=== PATIENT | female | born 1960 | race African-American/Black ===

== ENCOUNTER 2016-08-07 12:57 | Emergency (ER) | payer OTHER ==
[~2016-08-07] VITALS: Ht 172.7 cm; Wt 86.2 kg
[~2016-08-07 12:57] MED LIST: AMOXICILLI400 MG/5 M ORAL; HYDROCHLOROTH12.5 M2 ORAL; IBUPROFEN600 MG ORAL; OCUFLOX5 ML OP
[2016-08-07 13:53] LABS: APPEARANCE,URINE CLEAR; KETONES,URINE NEGATIVE (NEGATIVE); LEUKOCYTE ESTERASE ,URINE 1+ (NEGATIVE); NITRITE,URINE NEGATIVE (NEGATIVE); PH,URINE 5 (4.5-8.0); PROTEIN,URINE 2+ (NEGATIVE); UROBILINOGEN,URINE 1 MG/DL (0.0-1.0)
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
[2016-08-07] MEDS ORDERED: TYLENOL EXTRA500 MG ORAL (13:57)
[2016-08-07] MEDS ORDERED: ZOFRAN ODT4 MG ORAL (13:57)
[2016-08-07 14:04] VITALS: BP 148/77
[2016-08-07 14:04] LABS: RBC,URINE 0-2 /HPF (0 - 2); SQUAMOUS EPITHELIAL CELL,UR MANY /LPF (NONE/OCC)
[2016-08-07 14:05] LABS: BACTERIA,URINE FEW /HPF; ICTOTEST NEGATIVE
[2016-08-07 14:20] VITALS: BP 148/77
== END 2016-08-07 14:27 | disposition home or self-care (01) ==
LOC: EMR 13:40
DX: K29.70 Gastritis, unspecified, without bleeding (principal); R51 Headache; Z57.5 Occupational exposure to toxic agents in other industries; I10 Essential (primary) hypertension
CPT/HCPCS: 81003; 99284

== ENCOUNTER 2016-09-07 07:14 | Emergency (ER) | payer OTHER ==
[~2016-09-07] VITALS: Ht 172.7 cm; Wt 85.7 kg
[~2016-09-07 07:14] MED LIST changes: +TYLENOL EXTRA500 MG ORAL; +ZOFRAN ODT4 MG ORAL
[2016-09-07 07:40] VITALS: BP 158/87
[2016-09-07] MEDS ORDERED: KEFLEX500 MG ORAL (07:43)
[2016-09-07] MEDS ORDERED: DIPHENHYDRAMINE25 M1 ORAL (07:43)
[2016-09-07] MEDS ORDERED: PREDNISONE20 MG ORAL (07:43)
--- NOTE | 2016-09-07 10:39 | Emergency Room Report ---
History of Present Illness General Chief Complaint: Animal Bite Source: Patient Present Illness HPI 56-year-old female presents ED complaining of itchiness and red bumps to her body. States she noticed them this morning. patient she was bitten by something. Was sleeping in her bed. Patient denies any new sheets or clothing. Denies any new laundry detergents. Patient states there has been insect infestations in her apartment building which have not been addressed by the building management. Denies any known food or drug allergies. Notes itchiness. Denies pain. Denies fevers or chills. No other aggravating relieving factors. Denies any other associated symptoms Allergies: Coded Allergies: No Known Allergies (Unverified , 08/29/13) Patient History Past Medical History: HTN Past Surgical History: none Pertinent Family History: none Social History: Denies: alcohol use, drug use, smoking Last Menstrual Period: Menopause Now: No Immunizations: UTD Reviewed Nursing Documentation: PMH: Agreed, PSxH: Agreed Nursing Documentation-PMH Past Medical History: No History, Except For Hx Hypertension: Yes Review of Systems All Other Systems: negative except mentioned in HPI Physical Exam Vital Signs Date Time Temp Pulse Resp B/P Pulse Ox O2 Delivery O2 Flow Rate FiO2 09/07/16 07:20 97.9 78 16 167/91 99 Room Air Sp02 EP Interpretation: reviewed, normal General Appearance: no apparent distress, alert, GCS 15, non-toxic Head: normocephalic Eyes: bilateral eye PERRL, bilateral eye normal inspection ENT: hearing grossly normal, normal pharynx, no angioedema, normal voice Neck: full range of motion, supple/symm/no masses Respiratory: chest non-tender, lungs clear, normal breath sounds, speaking full sentences Cardiovascular #1: regular rate, rhythm, no edema Gastrointestinal: normal inspection Rectal: deferred Genitourinary: no CVA tenderness, ext genitalia/vag normal Neurologic: alert, oriented x3, responsive, motor strength/tone normal, sensory intact, speech normal Psychiatric: normal inspection Skin: rash - multiple erythamatous bumps noted to arms, face, legs Lymphatic: normal inspection Medical Decision Making Diagnostic Impression: Primary Impression: Insect bite Qualified Codes: W57.XXXA - Bitten or stung by nonvenomous insect and other nonvenomous arthropods, initial encounter ER Course Hospital Course 56-year-old female presents to ED with red bumps, itchiness Differential diagnoses include: Cellulitis, dermatitis, insect bite, abscess Clinical course Patient placed on stretcher. After initial history, physical exam reveals a middle aged female in no acute distress. On exam there is diffuse erythemaatous bumps to the arms, legs and face. No fluctuance. No discharge. Consistent with insect bite. Diagnosis - insect bite stable and discharged to home with prescription for prednisone, Benadryl, Keflex. Instructed to followup with PMD. Instructed return to ED if symptoms recur or worsen Chest X-Ray Diagnostic Results Chest X-Ray Ordered: No Last Vital Signs Date Time Temp Pulse Resp B/P Pulse Ox O2 Delivery O2 Flow Rate FiO2 09/07/16 07:49 97.7 81 15 158/87 98 Room Air Status: improved Disposition: HOME, SELF-CARE Condition: Stable Scripts Prednisone* (PREDNISONE*) 20 Mg Tablet 40 MG ORAL DAILY for 5 Days, TAB Prov: TRES TUTTLE M.D. 09/07/16 Diphenhydramine Hcl* (DIPHENHYDRAMINE HCL*) 25 Mg Capsule 25 MG ORAL Q6H Y for Itching, #30 CAP 0 Refills Prov: TRES TUTTLE M.D. 09/07/16 Cephalexin* (KEFLEX*) 500 Mg Capsule 500 MG ORAL Q6H, #28 CAP 0 Refills Prov: TRES TUTTLE M.D. 09/07/16 Referrals: [facility] (PCP) Patient Instructions: Insect Bite, [id number] TRES TUTTLE M.D. Sep 07, 2016 10:39
== END 2016-09-07 07:49 | disposition home or self-care (01) ==
LOC: EMR 07:46
DX: S00.86XA Insect bite (nonvenomous) of other part of head, initial encounter (principal); S40.862A Insect bite (nonvenomous) of left upper arm, initial encounter; S40.861A Insect bite (nonvenomous) of right upper arm, initial encounter; S80.862A Insect bite (nonvenomous), left lower leg, initial encounter; S80.861A Insect bite (nonvenomous), right lower leg, initial encounter; W57.XXXA Bitten or stung by nonvenomous insect and other nonvenomous arthropods, initial encounter; I10 Essential (primary) hypertension
CPT/HCPCS: 99284

== ENCOUNTER 2017-03-17 00:35 | Emergency (ER) | payer OTHER ==
[~2017-03-17] VITALS: Ht 172.7 cm; Wt 83.9 kg
[~2017-03-17 00:35] MED LIST changes: +DIPHENHYDRAMINE25 M1 ORAL; +KEFLEX500 MG ORAL; +PREDNISONE20 MG ORAL
[2017-03-17] MEDS ORDERED: HYDROCODON-ACE1 EA15 ORAL (02:04)
[2017-03-17] MEDS ORDERED: IBUPROFEN600 MG ORAL (02:04)
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
[2017-03-17 02:13] VITALS: BP 182/100
--- NOTE | 2017-03-17 12:42 | Diagnostic Imaging Report ---
Indication: Back pain Comparison: None Findings: 3 views of the lumbar spine were obtained. Multilevel narrowing of intervertebral disks and associated endplate and facet osteophytes are present. No malalignment identified. No acute fracture definitely seen. Right acetabular reconstruction noted. Impression: Mild spondylosis. No acute injury appreciated.
--- NOTE | 2017-03-17 12:42 | Diagnostic Imaging Report ---
Indication: Neck Pain Findings: 3 views of the cervical spine were obtained. Exam is limited by motion. Mild narrowing of the C2-3, C4-5 and C5 discs noted. No obvious fracture identified. Open-mouth view is negative. IMPRESSION: Suboptimal examination. No acute injury identified
== END 2017-03-17 02:14 | disposition home or self-care (01) ==
LOC: EMR 01:05
DX: S16.1XXA Strain of muscle, fascia and tendon at neck level, initial encounter (principal); S39.012A Strain of muscle, fascia and tendon of lower back, initial encounter; I10 Essential (primary) hypertension; V43.62XA Car passenger injured in collision with other type car in traffic accident, initial encounter; Y92.410 Unspecified street and highway as the place of occurrence of the external cause
CPT/HCPCS: 72020; 72040; 99284

== ENCOUNTER 2017-07-26 21:46 | Emergency (ER) | payer OTHER ==
[~2017-07-26] VITALS: Ht 172.7 cm; Wt 83.9 kg
[~2017-07-26 21:46] MED LIST changes: +HYDROCODON-ACE1 EA15 ORAL
[2017-07-26] MEDS ORDERED: Norco 5mg/325mg tab ORAL ONE (22:30)
[2017-07-26] MEDS ORDERED: IBUPROFEN600 MG ORAL (23:16)
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
[2017-07-26 23:22] VITALS: BP 0/0
--- NOTE | 2017-07-27 10:57 | Diagnostic Imaging Report ---
Indication: Pain Knee pain/trauma 3 views of the right knee were obtained. Findings: No obvious acute fracture identified. There is joint space narrowing and mild marginal osteophytes. There is opacification of the suprapatellar pouch on the lateral view. IMPRESSION: No obvious acute injury Probable small joint effusion Arthrosis
== END 2017-07-26 23:22 | disposition home or self-care (01) ==
LOC: EMR 22:32
DX: M17.11 Unilateral primary osteoarthritis, right knee (principal); I10 Essential (primary) hypertension
CPT/HCPCS: 99283

== ENCOUNTER 2017-10-20 22:01 | Emergency (ER) | payer OTHER ==
[~2017-10-20] VITALS: Ht 172.7 cm; Wt 83.0 kg
[2017-10-20] MEDS ORDERED: Norco 5mg/325mg tab ORAL ONE (22:45)
[2017-10-20] MEDS ORDERED: Ketorolac 60mg Inj IM ONE (22:45)
--- NOTE | 2017-10-20 22:45 | Emergency Room Report ---
History of Present Illness General Chief Complaint: Lower Extremity Injury Source: Patient Present Illness HPI Patient presents with complaints of right knee pain Patient reports that she was in the kitchen cleaning the refrigerator the ground was somewhat wet and essentially ended up having injury to the right leg patient reports that her right knee was injured when her lower leg bent to the right and essentially had pain at the medial aspect of the right knee Denies any ankle pain denies any pelvic pain Patient reports that she had previous arthritis in the right knee Allergies: Coded Allergies: No Known Allergies (Unverified , 08/29/13) Patient History Past Medical History: see triage record Pertinent Family History: none Now: No : 11 Para: 4 Reviewed Nursing Documentation: PMH: Agreed; PSxH: Agreed Nursing Documentation-PMH Hx Hypertension: Yes Review of Systems All Other Systems: negative except mentioned in HPI Physical Exam Vital Signs Date Time Temp Pulse Resp B/P (MAP) Pulse Ox O2 Delivery O2 Flow Rate FiO2 10/20/17 22:11 98.5 57 14 153/97 95 Room Air 98.4 Sp02 EP Interpretation: reviewed, normal General Appearance: well appearing, no apparent distress Head: normocephalic, atraumatic Eyes: bilateral eye PERRL, bilateral eye EOMI ENT: hearing grossly normal, normal pharynx Neck: supple Respiratory: lungs clear Cardiovascular #1: regular rate, rhythm Gastrointestinal: non tender, soft Musculoskeletal: other - Tender on medial palpation of the right knee, no obvious laxity, no obvious clinical effusion Neurologic: alert, oriented x3, responsive, historiographer III-XII nml as tested Skin: normal color, no rash Lymphatic: no adenopathy Medical Decision Making Diagnostic Impression: Primary Impression: Right knee sprain ER Course Given the patient's clinical history and presentation patient has consistent findings with likely ligamental soft tissue injury however given the discomfort x-ray imaging was obtained Shows similar findings to previous Patient presented with a brace which is left on she also has a cane already Patient will ice the area and is discussed regarding close outpatient follow-up with possible MRI as needed Other X-Ray Diagnostic Results Other X-Ray Diagnostic Results : X-Ray ordered: Right knee # of Views/Limited Vs Complete: 3 View Indication: Pain EP Interpretation: Yes Interpretation: no dislocation, no soft tissue swelling, no fractures Impression: No acute disease - Similar to previous Electronically Signed by: Aleksandra Tay DO Last Vital Signs Date Time Temp Pulse Resp B/P (MAP) Pulse Ox O2 Delivery O2 Flow Rate FiO2 10/20/17 22:11 98.5 57 14 153/97 95 Room Air 98.4 Status: improved Disposition: HOME, SELF-CARE Condition: Improved Referrals: [facility] (PCP) Additional Instructions: Patient is provided with the discharge instructions notified to follow up with primary doctor in the next 2-3 days otherwise return to the er with any worsening symptoms. Please note that this report is being documented using [email or web address] technology. This can lead to erroneous entry secondary to incorrect interpretation by the dictating instrument. Aleksandra Tay DO Oct 20, 2017 22:45
[2017-10-20] MEDS ORDERED: IBUPROFEN600 MG ORAL (23:50)
[2017-10-21 00:03] VITALS: BP 0/0
--- NOTE | 2017-10-21 12:08 | Diagnostic Imaging Report ---
Indication: Right knee pain one day after slipping in the kitchen Technique: 3 views of the right knee Comparison: None Findings: There is minimal degenerative joint space narrowing of the medial joint compartment. There are small medial osteophytes. No acute fractures. No dislocations. No suprapatellar effusion. Impression: Minimal degenerative changes No acute bony trauma
== END 2017-10-21 00:03 | disposition home or self-care (01) ==
LOC: EMR 22:26
DX: S83.91XA Sprain of unspecified site of right knee, initial encounter (principal); W01.0XXA Fall on same level from slipping, tripping and stumbling without subsequent striking against object, initial encounter; Y92.000 Kitchen of unspecified non-institutional (private) residence as the place of occurrence of the external cause; I10 Essential (primary) hypertension
CPT/HCPCS: 96372; 99283

== ENCOUNTER 2017-11-16 13:56 | Emergency (ER) | payer OTHER ==
[~2017-11-16] VITALS: Ht 172.7 cm; Wt 83.9 kg
[2017-11-16] MEDS ORDERED: NKM (14:04)
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
[2017-11-16] MEDS ORDERED: IBUPROFEN600 MG ORAL (14:40)
[2017-11-16] MEDS ORDERED: ROBAXIN500 MG PO (14:40)
[2017-11-16] MEDS ORDERED: LIDODERM700 M1 TOPIC (14:40)
[2017-11-16] MEDS ORDERED: SOMA250 MG PO (14:40)
[2017-11-16 14:51] VITALS: BP 176/106
== END 2017-11-16 14:51 | disposition home or self-care (01) ==
LOC: EMR 14:15
DX: S16.1XXA Strain of muscle, fascia and tendon at neck level, initial encounter (principal); V43.52XA Car driver injured in collision with other type car in traffic accident, initial encounter; Y92.410 Unspecified street and highway as the place of occurrence of the external cause; I10 Essential (primary) hypertension
CPT/HCPCS: 99283

== ENCOUNTER 2018-02-23 18:33 | Emergency (ER) | payer OTHER ==
[~2018-02-23] VITALS: Ht 172.7 cm; Wt 83.9 kg
[~2018-02-23 18:33] MED LIST changes: +LIDODERM700 M1 TOPIC; +NKM; +ROBAXIN500 MG PO; +SOMA250 MG PO
[2018-02-23] MEDS ORDERED: HYDROCHLOROTHIA25 MG ORAL (18:46)
[2018-02-23] MEDS ORDERED: IBUPROFEN600 MG ORAL (19:23)
[2018-02-23] MEDS ORDERED: DIPHENHYDRAMINE25 M1 ORAL (19:23)
[2018-02-23] MEDS ORDERED: CEPHALEXIN500 MG ORAL (19:23)
[2018-02-23] MEDS ORDERED: PREDNISONE20 MG ORAL (19:23)
[2018-02-23 19:29] VITALS: BP 154/89
--- NOTE | 2018-02-25 21:06 | Emergency Room Report ---
History of Present Illness General Chief Complaint: Skin Rash/Abscess Source: Patient Present Illness HPI 57-year-old female presents ED for evaluation. States that she's had bedbugs and roaches in her apartment for years. States she has bumps all over. Very itchy. Pain is dull, 5 out of 10, nonradiating. Denies fevers or chills. Denies any known food or drug allergies. No other aggravating relieving factors. Denies any other associated symptoms Allergies: Coded Allergies: No Known Allergies (Unverified , 08/29/13) Patient History Past Medical History: HTN Past Surgical History: none Pertinent Family History: none Social History: Denies: smoking, alcohol use, drug use Last Menstrual Period: Penopause Now: No Immunizations: UTD Reviewed Nursing Documentation: PMH: Agreed; PSxH: Agreed Nursing Documentation-PMH Hx Hypertension: Yes Review of Systems All Other Systems: negative except mentioned in HPI Physical Exam Vital Signs Date Time Temp Pulse Resp B/P (MAP) Pulse Ox O2 Delivery O2 Flow Rate FiO2 02/23/18 18:38 98.1 62 16 180/109 95 Room Air Sp02 EP Interpretation: reviewed, normal General Appearance: no apparent distress, alert, GCS 15, non-toxic Head: normocephalic Eyes: bilateral eye normal inspection, bilateral eye PERRL ENT: normal ENT inspection Neck: normal inspection Respiratory: normal inspection Cardiovascular #1: normal inspection Gastrointestinal: normal inspection Rectal: deferred Genitourinary: no CVA tenderness Musculoskeletal: normal inspection Neurologic: alert, oriented x3, responsive, motor strength/tone normal, sensory intact, speech normal Psychiatric: judgement/insight normal, memory normal, mood/affect normal, no suicidal/homicidal ideation Skin: other - multiple erythematous bumps to arms/legs Lymphatic: normal inspection Medical Decision Making Diagnostic Impression: Primary Impression: Insect bite Qualified Codes: W57.XXXA - Bitten or stung by nonvenomous insect and other nonvenomous arthropods, initial encounter ER Course Hospital Course 57 yo F presents to ED with rash Differential diagnoses include: Cellulitis, dermatitis, insect bite, abscess Clinical course Patient placed on stretcher. After initial history, physical exam reveals a middle aged female in no acute distress. On exam there multiple erythematous bumps to the body. There is no fluctuance. There is no tenderness. Clinical findings consistent with a insect bite with the possible bacterial superinfection. reassurance given Discussed findings with patient. We will discharge with antibiotics, Benadryl, prednisone. Recommend source control. Safe for discharge close outpatient follow-up Diagnosis - insect bite stable and discharged to home with prescription for motrin, prednisone, Benadryl , Keflex. Instructed to followup with PMD. Instructed return to ED if symptoms recur or worsen Last Vital Signs Date Time Temp Pulse Resp B/P (MAP) Pulse Ox O2 Delivery O2 Flow Rate FiO2 02/23/18 19:29 98.1 85 16 154/89 98 Room Air Status: improved Disposition: HOME, SELF-CARE Condition: Stable Scripts Ibuprofen* (MOTRIN*) 600 Mg Tablet 600 MG ORAL Q8H PRN for For Pain, #30 TAB 0 Refills Prov: Mick Paige MD 02/23/18 Prednisone* (PREDNISONE*) 20 Mg Tablet 40 MG ORAL DAILY, #10 TAB Prov: Mick Paige MD 02/23/18 Diphenhydramine Hcl* (DIPHENHYDRAMINE HCL*) 25 Mg Capsule 25 MG ORAL Q8H PRN for Itching, #30 CAP 0 Refills Prov: Mick Paige MD 02/23/18 Cephalexin* (KEFLEX*) 500 Mg Capsule 500 MG ORAL EVERY 6 HOURS for 7 Days, CAP Prov: Mick Paige MD 02/23/18 Referrals: [facility],REFERRING (PCP) Patient Instructions: Insect Bite, [id number] Mick Paige MD Feb 25, 2018 21:06
== END 2018-02-23 19:29 | disposition home or self-care (01) ==
LOC: EMR 19:10
DX: S80.862A Insect bite (nonvenomous), left lower leg, initial encounter (principal); S80.861A Insect bite (nonvenomous), right lower leg, initial encounter; S40.862A Insect bite (nonvenomous) of left upper arm, initial encounter; S40.861A Insect bite (nonvenomous) of right upper arm, initial encounter; W57.XXXA Bitten or stung by nonvenomous insect and other nonvenomous arthropods, initial encounter; Y92.9 Unspecified place or not applicable; I10 Essential (primary) hypertension
CPT/HCPCS: 99282

== ENCOUNTER 2018-03-31 12:06 | Emergency (ER) | payer OTHER ==
[~2018-03-31] VITALS: Ht 172.7 cm; Wt 83.9 kg
[~2018-03-31 12:06] MED LIST changes: +CEPHALEXIN500 MG ORAL; +HYDROCHLOROTHIA25 MG ORAL
--- NOTE | 2018-03-31 12:39 | Emergency Room Report ---
History of Present Illness General Chief Complaint: Upper Respiratory Illness Source: Patient Present Illness HPI 58-year-old female presents to emergency Department complaining of persistent cough moderate amount of phlegm 5 days. Patient reports that she initially had upper respiratory symptoms which started to resolve however her cough and phlegm with some nasal congestion persists. Patient states that she had worsening of her symptoms after visiting [place]. Patient denies fevers or chills she denies sore throat, earache, neck pain or stiffness or photophobia. She denies history of immunocompromise. PMHX only significant for HTN. Denies asthma, COPD or smoking hx. Denies CP. Allergies: Coded Allergies: No Known Allergies (Unverified , 08/29/13) Patient History Past Medical History: see triage record, HTN Past Surgical History: none Pertinent Family History: none Now: No Reviewed Nursing Documentation: PMH: Agreed; PSxH: Agreed Nursing Documentation-PM Past Medical History: No History, Except For Hx Hypertension: Yes Review of Systems All Other Systems: negative except mentioned in HPI Physical Exam Vital Signs Date Time Temp Pulse Resp B/P (MAP) Pulse Ox O2 Delivery O2 Flow Rate FiO2 03/31/18 12:22 98.1 74 18 153/104 99 Room Air Sp02 EP Interpretation: reviewed, normal General Appearance: no apparent distress, alert, GCS 15, non-toxic Head: normocephalic, atraumatic Eyes: bilateral eye normal inspection, bilateral eye PERRL ENT: hearing grossly normal, normal voice, TMs + canals normal, uvula midline, moist mucus membranes, nasal congestion, other - PND Neck: full range of motion, no meningismus, no bony tend Respiratory: chest non-tender, lungs clear, normal breath sounds, no respiratory distress, no accessory muscle use, no wheezing, speaking full sentences Cardiovascular #1: regular rate, rhythm, no edema, normal capillary refill Musculoskeletal: back normal, gait/station normal, normal range of motion, non- tender Neurologic: alert, oriented x3, responsive, motor strength/tone normal, sensory intact, speech normal, grossly normal Psychiatric: judgement/insight normal Skin: normal color, no rash, warm/dry, well hydrated Lymphatic: no adenopathy Medical Decision Making PA Attestation Dr. Tay is my supervising Physician whom patient management has been discussed with. Diagnostic Impression: Primary Impression: Bronchitis Additional Impression: Post-nasal drainage ER Course 58-year-old female presents to emergency Department complaining of persistent cough moderate amount of phlegm 5 days. Patient reports that she initially had upper respiratory symptoms which started to resolve however her cough and phlegm with some nasal congestion persists. Patient states that she had worsening of her symptoms after visiting [place]. Patient denies fevers or chills she denies sore throat, earache, neck pain or stiffness or photophobia. She denies history of immunocompromise. PMHX only significant for HTN. Denies asthma, COPD or smoking hx. Denies CP. Ddx considered but are not limited to URI, pneumonia, PE, strep pharyngitis, meningitis. Vital signs: Pt.is afebrile VS are WNL H&PE are most consistent with bronchitis and PND ORDERS: none required at this time, the diagnosis is clinical ED INTERVENTIONS: None required at this time. DISCHARGE: At this time pt. is stable for d/c to home. Will provide printed patient care instructions, and any necessary prescriptions. Care plan and follow up instructions have been discussed with the patient prior to discharge. Last Vital Signs Date Time Temp Pulse Resp B/P (MAP) Pulse Ox O2 Delivery O2 Flow Rate FiO2 03/31/18 12:32 74 18 Room Air 03/31/18 12:22 98.1 153/104 99 Disposition: HOME, SELF-CARE Condition: Stable Referrals: NON PHYSICIAN (PCP) Patient Instructions: Acute Bronchitis, [id number] Additional Instructions: Take medications as directed. Follow up with a Primary Care Provider in 3-5 days, even if your symptoms have resolved. --Please review list of primary care clinics, if you do not already have a primary care provider Return sooner to ED if new symptoms occur, or current symptoms become worse. - Please note that this Emergency Department Report was dictated using [employer] service technician technology software, occasionally this can lead to erroneous entry secondary to interpretation by the dictation equipment. Daysi Abbott Mar 31, 2018 12:39
[2018-03-31] MEDS ORDERED: PROMETHAZINE-D118 ML ORAL (12:40)
[2018-03-31] MEDS ORDERED: ZYRTEC-D TABLE1 EACH ORAL (12:40)
[2018-03-31] MEDS ORDERED: GUAIFENESIN1200 MG PO (12:40)
[2018-03-31 12:46] VITALS: BP_SYST 136; BP_SYST 153; BP_DIAS 104; BP_DIAS 85
== END 2018-03-31 12:46 | disposition home or self-care (01) ==
LOC: EMR 12:25
DX: J40 Bronchitis, not specified as acute or chronic (principal); R09.82 Postnasal drip; I10 Essential (primary) hypertension
CPT/HCPCS: 99282

== ENCOUNTER 2018-08-07 08:56 | Emergency (ER) | payer OTHER ==
[~2018-08-07] VITALS: Ht 172.7 cm; Wt 83.9 kg
[~2018-08-07 08:56] MED LIST changes: +GUAIFENESIN1200 MG PO; +PROMETHAZINE-D118 ML ORAL; +ZYRTEC-D TABLE1 EACH ORAL
--- NOTE | 2018-08-07 09:05 | NUR ---
ED Nurse Note: PT ambulated to ED from homewith laceration to left hand third finger, pt smashed it in a car door. Pt A&O x4, pt bp is 192/108 pt did not take HCTZ this morning, ED MD aware, will continue to monitor Addendum: 08/07/18 at 0928 by KDEARING ED Nurse Note: PT denies sob or chest pain at this time
[2018-08-07 09:10] VITALS: BP 192/108
[2018-08-07] MEDS ORDERED: Tetanus/Diptheria/Pertussis IM ONE (09:30)
[2018-08-07] MEDS ORDERED: Lidocaine 1% MPF 10mg/ml 5ml IM ONE (09:45)
--- NOTE | 2018-08-07 09:53 | Emergency Room Report ---
History of Present Illness General Chief Complaint: Laceration Source: Patient Present Illness HPI This patient states that she caught her left middle finger in a car door. She states this happened just prior to arrival. She has no other injuries or complaints. Allergies: Coded Allergies: No Known Allergies (Unverified , 08/29/13) Patient History Past Medical History: see triage record, HTN Social History: Denies: smoking, alcohol use, drug use Now: No Reviewed Nursing Documentation: PMH: Agreed; PSxH: Agreed Nursing Documentation-PMH Past Medical History: No History, Except For Hx Hypertension: Yes Review of Systems All Other Systems: negative except mentioned in HPI Physical Exam Vital Signs Date Time Temp Pulse Resp B/P (MAP) Pulse Ox O2 Delivery O2 Flow Rate FiO2 08/07/18 09:01 98.1 79 20 95 Room Air 08/07/18 09:10 192/108 Sp02 EP Interpretation: reviewed, normal General Appearance: no apparent distress, alert, GCS 15, non-toxic Head: normocephalic, atraumatic Eyes: bilateral eye normal inspection, bilateral eye PERRL ENT: hearing grossly normal, normal pharynx, no angioedema, normal voice Neck: full range of motion, supple/symm/no masses Respiratory: no respiratory distress, no retraction, no accessory muscle use, speaking full sentences Rectal: deferred Musculoskeletal: back normal, gait/station normal, normal range of motion, other - L. middle finger: 1cm superficial laceration Just proximal to the IP joint. FROM, Tendon motion intact throughout. No FB. Neurologic: alert, oriented x3, responsive, motor strength/tone normal, sensory intact, speech normal Psychiatric: judgement/insight normal, memory normal, mood/affect normal, no suicidal/homicidal ideation Skin: normal color, no rash, warm/dry, well hydrated Procedures Laceration/Wound Repair Laceration/Wound Repair : Consent: Verbal Wound Location: upper extremity Wound's Depth, Shape: superficial Wound Length (cm): 1 Wound Explored: clean Irrigated w/ Saline (ccs): 400 Anesthesia: 1% Lidocaine Volume Anesthetic (ccs): 3 Wound Debrided: minimal Wound Repaired With: sutures Suture Size/Type: 6:0, proline Number of Sutures: 6 Sling Applied?: Yes Patient Tolerated: Well Complications: None Medical Decision Making Diagnostic Impression: Primary Impression: Finger laceration Additional Impression: Phalanx, distal fracture of finger ER Course This patient has a finger laceration of the left middle finger. There is a possible small avulsion fracture of the distal small phalanx at the medial IP joint. The laceration was repaired. See my procedure note. The patient was placed in an extension splint. I will also place patient on a course of antibiotics as a precaution. Patient was instructed to follow-up within orthopedics in 1 week. States she does have an office services specialist for her knee. She will be able to make an appointment with her orthopedist. Patient was given wound care precautions and close follow-up instructions. Other X-Ray Diagnostic Results Other X-Ray Diagnostic Results : X-Ray ordered: L. middle finger # of Views/Limited Vs Complete: 3 View Indication: Other - trauma EP Interpretation: Yes Interpretation: other - Possible avulsion fx at the medial IP join of the distal proximal phalanx. Impression: Other - See above. Electronically Signed by: Suzanne Hutchins DO Last Vital Signs Date Time Temp Pulse Resp B/P (MAP) Pulse Ox O2 Delivery O2 Flow Rate FiO2 08/07/18 09:10 102 14 192/108 94 Room Air 08/07/18 09:01 98.1 Status: improved Disposition: HOME, SELF-CARE Condition: Improved Referrals: NON PHYSICIAN (PCP) Patient Instructions: Laceration Care, Adult Suzanne Hutchins DO August 07, 2018 09:53
--- NOTE | 2018-08-07 10:34 | Diagnostic Imaging Report ---
Indication: pain in finger. trauma Findings: 3 views of the left third finger were obtained. There is a fracture involving the periarticular aspect of the head of the third proximal phalange. This is on the radial side are medial side of the bone. Soft tissue irregularity noted adjacently. No foreign body seen. IMPRESSION: Evidence of an acute fracture involving the radial side of the third proximal phalangeal head.
[2018-08-07] MEDS ORDERED: CEPHALEXIN500 MG ORAL (10:59)
--- NOTE | 2018-08-07 11:23 | NUR ---
ER DISCHARGE NOTE: Patient is cleared to be discharged per ERMD, pt is aox4, on room air, with stable vital signs. pt was given dc and prescription instructions, pt was able to verbalize understanding, pt id band removed. pt is able to ambulate with steady gait. pt took all belongings.
[2018-08-07 11:24] VITALS: BP 161/90
--- NOTE | 2018-08-07 11:30 | NUR ---
ED Nurse Note: Pt signed informed consent. Dr Zambrano sutured lac on left third finger without complications. Pt reports pain in hand is lessened 2/10. CLean and dressed in gauze with splint.
[2018-08-07] MEDS ORDERED: ACETAMINOPHEN-1 EAC1 ORAL (12:10)
== END 2018-08-07 11:23 | disposition home or self-care (01) ==
LOC: EMR 09:24
DX: S61.213A Laceration without foreign body of left middle finger without damage to nail, initial encounter (principal); S62.613A Displaced fracture of proximal phalanx of left middle finger, initial encounter for closed fracture; I10 Essential (primary) hypertension; W23.0XXA Caught, crushed, jammed, or pinched between moving objects, initial encounter; Y92.9 Unspecified place or not applicable; Z23 Encounter for immunization
CPT/HCPCS: 12001; 29130; 73140; 90471; 90715; 99283; Z7502

== ENCOUNTER 2018-09-09 18:38 | Emergency (ER) | payer OTHER ==
[~2018-09-09] VITALS: Ht 172.7 cm; Wt 81.6 kg
[~2018-09-09 18:38] MED LIST changes: +ACETAMINOPHEN-1 EAC1 ORAL
[2018-09-09] MEDS ORDERED: Tylenol #3 tab (300mg/30mg) ORAL ONE (19:30)
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
[2018-09-09] MEDS ORDERED: IBUPROFEN600 MG ORAL (20:16)
[2018-09-09] MEDS ORDERED: ACETAMINOPHEN-1 EAC1 ORAL (20:16)
[2018-09-09] MEDS ORDERED: AUGMENTIN 875-1 EAC1 ORAL (20:16)
[2018-09-09 20:34] VITALS: BP 165/96
--- NOTE | 2018-09-10 10:25 | Diagnostic Imaging Report ---
Indication: Trauma, injury, fourth toe pain Technique: 4 views of the left toes Comparison: none Findings: There is an oblique fracture of the fourth proximal phalangeal shaft. This overrides by 4-5 millimeters. There is also laterally displaced by about 2 mm. No other acute fractures. No dislocations. The joint spaces are preserved. Impression: Positive for fourth proximal phalangeal fracture This agrees with the preliminary interpretation reported by the emergency room physician in the electronic medical record
--- NOTE | 2018-09-10 10:28 | Diagnostic Imaging Report ---
Indication: Trauma, pain Technique: 3 views of the left fourth finger Comparison: none Findings: No acute fractures. No dislocations. The joint spaces are preserved. Impression: Negative
== END 2018-09-09 20:34 | disposition home or self-care (01) ==
LOC: EMR 19:22
DX: S92.502A Displaced unspecified fracture of left lesser toe(s), initial encounter for closed fracture (principal); S61.255A Open bite of left ring finger without damage to nail, initial encounter; S61.215A Laceration without foreign body of left ring finger without damage to nail, initial encounter; Y04.1XXA Assault by human bite, initial encounter; Y92.9 Unspecified place or not applicable; I10 Essential (primary) hypertension
CPT/HCPCS: 12001; 73140; 73660; 99284; Z7502

== ENCOUNTER 2019-06-03 14:58 | Emergency (ER) | payer OTHER ==
[~2019-06-03] VITALS: Ht 172.7 cm; Wt 86.2 kg
[~2019-06-03 14:58] MED LIST changes: +AUGMENTIN 875-1 EAC1 ORAL
[2019-06-03 15:10] VITALS: BP 157/93
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
[2019-06-03] MEDS ORDERED: Ketorolac 30mg Inj IV ONE (15:15)
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
[2019-06-03] MEDS ORDERED: ROBAXIN-750750 MG PO (16:12)
[2019-06-03] MEDS ORDERED: LIDODERM700 M1 TOPIC (16:12)
[2019-06-03] MEDS ORDERED: TYLENOL325 MG ORAL (16:12)
[2019-06-03] MEDS ORDERED: IBUPROFEN600 MG ORAL (16:12)
[2019-06-03 16:15] VITALS: BP 152/89
--- NOTE | 2019-06-03 16:15 | NUR ---
ER DISCHARGE NOTE: Patient is cleared to be discharged per ERMD, pt is aox4, on room air, with stable vital signs as documented. pt was given dc and prescription instructions and was able to verbalize understanding. pt id band removed. pt is able to ambulate with steady gait. pt took all belongings.
--- NOTE | 2019-06-03 16:42 | Diagnostic Imaging Report ---
Indication: Right shoulder pain COMPARISON: None Findings: 3 views of the right shoulder were obtained. No acute fractures, malalignment, erosions or periostitis are identified. Suggestion of osteoarthritis AC joint. Soft tissues are unremarkable. Impression: Negative for acute injury
== END 2019-06-03 16:15 | disposition home or self-care (01) ==
LOC: EMR 15:15
DX: S46.911A Strain of unspecified muscle, fascia and tendon at shoulder and upper arm level, right arm, initial encounter (principal); X50.9XXA Other and unspecified overexertion or strenuous movements or postures, initial encounter; Y92.039 Unspecified place in apartment as the place of occurrence of the external cause; I10 Essential (primary) hypertension
CPT/HCPCS: 73030; 96374; J1885; Z7502; 99284

== ENCOUNTER 2019-06-07 18:13 | Emergency (ER) | payer OTHER ==
[~2019-06-07] VITALS: Ht 172.7 cm; Wt 88.5 kg
[~2019-06-07 18:13] MED LIST changes: +ROBAXIN-750750 MG PO; +TYLENOL325 MG ORAL
--- NOTE | 2019-06-07 18:21 | NUR ---
ED Nurse Note: PT called at waiting room but went to restroom outside of ED.
[2019-06-07 19:25] VITALS: BP 132/91
--- NOTE | 2019-06-07 19:25 | NUR ---
ED Nurse Note: Pt walked into ED from home for c/o "lump" on R side of stomach. Pt is aaox4, breathing is normal, ambulatory with steady gait. No other complaints at this time.
[2019-06-07] MEDS ORDERED: IBUPROFEN600 MG ORAL (19:33)
[2019-06-07] MEDS ORDERED: CYCLOBENZAPRINE10 MG ORAL (19:33)
[2019-06-07 19:45] VITALS: BP 130/85
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
== END 2019-06-07 19:45 | disposition home or self-care (01) ==
LOC: EMR 19:25
DX: T14.8XXA Other injury of unspecified body region, initial encounter (principal); X58.XXXA Exposure to other specified factors, initial encounter; Y92.9 Unspecified place or not applicable; I10 Essential (primary) hypertension; R07.81 Pleurodynia
CPT/HCPCS: 99282

== ENCOUNTER 2019-09-17 00:34 | Emergency (ER) | payer MEDICAID, OTHER ==
[~2019-09-17] VITALS: Ht 172.7 cm; Wt 88.5 kg
[~2019-09-17 00:34] MED LIST changes: +CYCLOBENZAPRINE10 MG ORAL
[2019-09-17] MEDS ORDERED: CLEAR EYES COMP15 ML OP (01:14)
[2019-09-17] MEDS ORDERED: Gentamicin 0.3% Opth Soln 5ml RIGHT EYE ONE (01:15)
--- NOTE | 2019-09-17 01:22 | Emergency Room Report ---
History of Present Illness General Chief Complaint: Eye Problems Source: Patient Present Illness HPI Patient presents with complaints of discomfort to the right eye Reports that earlier this evening she accidentally placed crazy glue instead of a different drop The area has now had irritation to it Denies any visual changes denies any headache denies any chest pain or shortness of breath Allergies: Coded Allergies: No Known Allergies (Unverified , 08/29/13) COVID-19 Screening Contact w/high risk pt: No Recent Travel to affected area: No Experienced COVID-19 symptoms?: No COVID-19 Testing performed STUDENT OFFICER: No Patient History Past Medical History: see triage record Reviewed Nursing Documentation: PMH: Agreed; PSxH: Agreed Nursing Documentation-PMH Hx Hypertension: Yes Review of Systems All Other Systems: negative except mentioned in HPI Physical Exam Vital Signs Date Time Temp Pulse Resp B/P (MAP) Pulse Ox O2 Delivery O2 Flow Rate FiO2 09/17/19 00:46 98.2 68 18 158/98 (118) 98 Room Air Sp02 EP Interpretation: reviewed, normal General Appearance: well appearing, no apparent distress Head: normocephalic, atraumatic Eyes: right eye other - Very minimal irritation noted to the lateral aspect of the right conjunctiva, no obvious foreign body that is visible; bilateral eye PERRL, bilateral eye EOMI ENT: hearing grossly normal, normal pharynx, TMs + canals normal, uvula midline Neck: full range of motion, supple, no meningismus, no bony tend Respiratory: no respiratory distress, no retraction, no accessory muscle use Genitourinary: no CVA tenderness Musculoskeletal: normal inspection Neurologic: motor strength/tone normal, oriented x3, sensory intact, responsive Psychiatric: mood/affect normal Skin: no rash Lymphatic: normal inspection, no adenopathy Medical Decision Making Diagnostic Impression: Primary Impression: eye foreign body ER Course Patient reports foreign body including crazy glue into the right eye Patient's eye is able to open and close no obvious signs of external contact there is very minimal conjunctival irritation Patient was provided with drops here in the emergency room and will continue on outpatient therapy I did not see any other emergent process requiring urgent care Last Vital Signs Date Time Temp Pulse Resp B/P (MAP) Pulse Ox O2 Delivery O2 Flow Rate FiO2 09/17/19 00:46 98.2 68 18 158/98 (118) 98 Room Air Status: improved Disposition: HOME, SELF-CARE Condition: Improved Scripts Naphazo HCl/Hpm/Ps 80/Zn Sulf (Clear Eyes Complete Eye Drops) 15 Ml Drops 2 DROP OP QID for 5 Days, ML Prov: Aleksandra Tay DO 09/17/19 Referrals: [facility]ERR[facility] (PCP) Patient Instructions: Eye Foreign Body, [id number] Additional Instructions: Patient is provided with the discharge instructions notified to follow up with primary doctor in the next 2-3 days otherwise return to the er with any worsening symptoms. Please note that this report is being documented using Frame[employer]ast technology. This can lead to erroneous entry secondary to incorrect interpretation by the dictating instrument. Aleksandra Tay DO Sep 17, 2019 01:22
--- NOTE | 2019-09-17 01:22 | NUR ---
ED Nurse Note: Patient rendered antibiotic ointment for the eye and provided with additional prescription. ERMd provided additional discharge instructions as well. Patient departed with all belongings, A&Ox3, ambulatory with steady gait to be escorted home by her friend.
[2019-09-17 01:24] VITALS: BP 158/98
== END 2019-09-17 01:25 | disposition home or self-care (01) ==
LOC: EMR 01:00
DX: T15.11XA Foreign body in conjunctival sac, right eye, initial encounter (principal); S00.251A Superficial foreign body of right eyelid and periocular area, initial encounter; I10 Essential (primary) hypertension; X58.XXXA Exposure to other specified factors, initial encounter; Y93.89 Activity, other specified; Y92.9 Unspecified place or not applicable
CPT/HCPCS: 99282